=== PATIENT | female | born 1990 | race Caucasian/White ===

== ENCOUNTER 2019-03-12 18:43 | Emergency (ER) | payer MEDICAID ==
[2019-03-12] MEDS: IBUPROFEN 600 MG TAB PO (19:57)
[2019-03-12] MEDS: MECLIZINE 12.5 MG TAB PO (19:58)
== END 2019-03-12 20:55 | disposition home or self-care (01) ==
LOC: FTE 18:43
DX: R42 Dizziness and giddiness (principal)
CPT/HCPCS: 99282; Z7502